=== PATIENT | female | born 1960 | race Caucasian/White ===

== ENCOUNTER 2017-10-25 05:23 | Observation (INO) ==
[2017-10-25] MEDS ORDERED: IOPAMIDOL 100 ML BOTTLE IV ONE (05:24)
[2017-10-25] MEDS ORDERED: ONDANSETRON 4 MG/2 ML VIAL IV ONE (05:29)
[2017-10-25] MEDS ORDERED: 0.9 % SODIUM CHLORIDE 1,000 ML IV ONE (05:29)
[2017-10-25] MEDS ORDERED: PROMETHAZINE 25 MG/ML VIAL IV ONE ×2 (06:09→09:32)
[2017-10-25 06:21] LABS: Basophils # (Auto) 0 K/mcL (0.0-0.3); Basophils % (Auto) 0.2 % (0.0-2.0); Eosinophils # (Auto) 0.2 K/mcL (0.0-0.7); Granulocytes % (Auto) 78.1 % (38.0-78.0); Lymphocytes # (Auto) 2.3 K/mcL (1.5-4.8); Lymphocytes % (Auto) 15.7 % (15.5-49.0); Mean Cell Volume 91.6 fL (80.0-100.0); Mean Corpuscular HGB Conc 33.8 g/dL (31.0-36.0); Monocytes # (Auto) 0.7 K/mcL (0.1-0.9); Platelet Count 307 K/mcL (140-440); RBC 4.66 M/mcL (4.00-5.20)
[2017-10-25 06:38] LABS: ALT/SGPT 13 U/l (0-40); Albumin 4.7 gm/dL (3.2-5.2); Albumin/Globulin Ratio 1.6 (1.0-2.3); Alkaline Phosphatase 79 U/L (39-117); Blood Urea Nitrogen 13 mg/dl (6-20)
[2017-10-25 06:44] LABS: Appearance,Urine HAZY; Bacteria,Urine FEW /hpf (0); Bilirubin,Urine NEG (NEG); Color,Urine YELLOW; Glucose,Urine (UA) NEGATIVE (NEG); Leukocyte Esterase,Urine 25 /uL (NEG); Mucus,Urine FEW /hpf (0); Protein,Urine NEG (NEG); Specific Gravity,Urine 1.034 (1.000-1.035); Urine Blood NEG mg/dL (<0.03); Urine RBC 1 /hpf (0-1); Urine Squamous Epithelial Cell 23 /hpf (0-4); Urine Transitional Epi Cells < 1 /hpf (0-2); Urine WBC 4 /hpf (0-4); Urobilinogen,Urine NEG (NEG)
[2017-10-25] MEDS ORDERED: LACTATED RINGERS 1,000 ML IV ONE (06:54)
--- NOTE | 2017-10-25 06:56 | Emergency Department Note ---
General Adult HPI - General Chief complaint: Abdominal Pain Stated complaint: Abdominal cramping Time Seen by Provider: 10/25/17 06:48 Mode of arrival: ambulatory - History of Present Illness HPI Narrative: This patient has been ill for a week with nausea vomiting mucousy diarrhea and nominal pain. Has not been able to keep anything down. She does not have her gallbladder or appendix. She is having a lot of right sided discomfort. Also feels it in her back. - Related Data Previous Rx's Medication Instructions Recorded propranolol ER 80 mg capsule,24 80 mg PO QDAY 30 Days #30 cap 01/28/15 hr,extended release zolpidem 5 mg tablet See Dose Instructions PO HS PRN 06/28/15 #10 tab Albuterol Sulfate [Ventolin] 2 puff INH Q4-6HP PRN #1 inhaler 03/31/17 Allergies Allergy/AdvReac Type Severity Reaction Status Date / Time bupropion [Bupropion] Allergy Unknown Verified 04/23/16 11:08 ketorolac [Ketorolac] Allergy Unknown Verified 04/23/16 11:08 metoclopramide Allergy Unknown Verified 04/23/16 11:08 [Metoclopramide] NSAIDS (Non-Steroidal Allergy Unknown Verified 04/23/16 11:08 Anti-Inflamma Paregoric Allergy Unknown Verified 04/23/16 11:08 prochlorperazine Allergy Unknown Verified 04/23/16 11:08 [Prochlorperazine] Pyrazoles Allergy Unknown Verified 04/23/16 11:08 Salicylates Allergy Unknown Verified 04/23/16 11:08 sumatriptan [Sumatriptan] Allergy Unknown Verified 04/23/16 11:08 [id number] Antimigraine Allergy Unknown Verified 04/23/16 11:08 Agents INGREDIENT: PHENYLET - Allergy Unknown Uncoded 09/06/14 13:49 PHENYLETHYLAMINES(DO NOT USE RETIRED Review of Systems All systems ED: reviewed and negative except as stated. Past Medical History - Past Medical History PMF Narrative: Medical History Upper respiratory infection (Acute) Gastroenteritis (Acute) Dental abscess (Acute) Chest pain (Acute) Cellulitis (Acute) Medical history: Reports: GERD, migraine Surgical history ED: Reports: appendectomy, cholecystectomy, hysterectomy, tonsillectomy - Social History smoking status: Current some day smoker Alcohol use: Reports: None Physical Exam Limitations: no limitations General appearance: alert Head: atraumatic Eye: Present: normal appearance ENT: normal exam Neck: Present: normal inspection Chest: Present: normal inspection Respiratory: Present: normal lung sounds bilaterally Cardiovascular: Present: regular rate, normal rhythm, normal heart sounds Abdominal: Present: soft, tenderness. Absent: distention, guarding, rebound Abdominal tenderness: Present: diffuse, mild Neurological: Present: alert Psychiatric: Present: normal affect Skin: Present: warm, dry, intact Course Vital Signs Temperature 97.3 F 10/25/17 05:23 Pulse Rate 93 H 10/25/17 05:23 Respiratory Rate 16 10/25/17 05:23 Blood Pressure 145/100 10/25/17 05:23 Pulse Oximetry (%) 100 10/25/17 05:23 Temperature 97.3 F 10/25/17 05:23 Pulse Rate 66 10/25/17 08:30 Respiratory Rate 16 10/25/17 05:23 Blood Pressure 124/68 10/25/17 08:30 Pulse Oximetry (%) 97 10/25/17 08:30 Medical Decision Making - MDM Narrative Medical decision making narrative: We are still awaiting the reading of the CT scan. Final disposition per Dr. Esparza. - Lab Data Lab results reviewed: Yes I reviewed the patient's lab results. Result diagrams: 10/25/17 05:43 10/25/17 05:43 Lab Results 10/25/17 10/25/17 10/25/17 Range/Units 05:43 05:43 06:23 WBC 14.7 H (4.5-11.0) K/mcL RBC 4.66 (4.00-5.20) M/mcL Hgb 14.4 (12.0-15.0) g/dL Hct 42.7 (36.0-48.0) % MCV 91.6 (80.0-100.0) fL MCH 31.0 (26.0-34.0) pg MCHC 33.8 (31.0-36.0) g/dL RDW 13.0 (11.5-14.5) % Plt Count 307 (140-440) K/mcL MPV 7.7 (7.4-10.4) fL Gran % 78.1 H (38.0-78.0) % Lymph % (Auto) 15.7 (15.5-49.0) % [place] % (Auto) 5.0 (1.0-12.0) % Eos % (Auto) 1.0 (0.0-7.0) % Baso % (Auto) 0.2 (0.0-2.0) % Gran # 11.5 H (1.8-8.0) K/mcL Lymph # (Auto) 2.3 (1.5-4.8) K/mcL [place] # (Auto) 0.7 (0.1-0.9) K/mcL Eos # (Auto) 0.2 (0.0-0.7) K/mcL Baso # (Auto) 0 (0.0-0.3) K/mcL Sodium 133 (133-145) mmol/L Potassium 3.8 (3.3-5.1) mmol/L Chloride 96 (96-108) mmol/L Carbon Dioxide 21 L (22-30) mmol/L Anion Gap 16.0 (8-16) BUN 13 (6-20) mg/dl Creatinine 0.7 (0.6-1.1) mg/dl GFR Calculation 98 Glucose 114 H (70-105) mg/dL Calcium 9.9 (8.6-10.4) mg/dl Total Bilirubin 0.5 (0.0-1.0) mg/dL AST 16 (0-37) U/l ALT 13 (0-40) U/l Alkaline Phosphatase 79 (39-117) U/L Total Protein 7.6 (5.9-8.4) gm/dL Albumin 4.7 (3.2-5.2) gm/dL Globulin 2.9 (2.2-3.7) gm/dL Albumin/Globulin Ratio 1.6 (1.0-2.3) Urine Color Yellow Urine Appearance Hazy Urine pH 5.0 (5.0-9.0) Ur Specific [place] 1.034 (1.000-1.035) Urine Protein Neg (NEG) mg/dL Urine Glucose (UA) Negative (NEG) mg/dL Urine Ketones Neg (NEG) mg/dL Urine Occult Blood Neg (<0.03) mg/dL Urine Nitrate Neg (NEG) Urine Bilirubin Neg (NEG) mg/dL Urine Urobilinogen Neg (NEG) mg/dL Ur Leukocyte Esterase 25 A (NEG) /uL Urine RBC 1 (0-1) /hpf Urine WBC 4 (0-4) /hpf Ur Squamous Epith Cells 23 H (0-4) /hpf Ur Transition Epith Cell < 1 (0-2) /hpf Urine Bacteria Few A (0) /hpf Urine Mucus Few (0) /hpf Ur Culture Indicated? No Disposition Pt seen by PNEUMATIC TUBE REPAIRER/PA only: No Disposition: Still a Patient Referrals: Nicol Casillas MD [Primary Care Provider] -
--- NOTE | 2017-10-25 08:00 | XRay Report ---
CLINICAL INFORMATION: Abdominal pain COMPARISON: 11/10/2007 plain film. FINDINGS: The stool gas pattern is unremarkable. There is no free air, soft tissue mass, organomegaly or pathologic calcification. IMPRESSION: Normal abdomen Interpreted and Authenticated by: Ezequiel Hurley 10/25/17
--- NOTE | 2017-10-25 09:02 | Cat Scan Report ---
CLINICAL INFORMATION: Abdominal pain and mucous diarrhea COMPARISON: Abdomen and pelvic CT: 11/10/2007 TECHNIQUE: Following enteric contrast, 80 cc of Isovue-300 were injected intravenously, and 60 seconds later, 0.625 mm helical slices were obtained from the mid heart through the subtrochanteric regions. Following reconstruction, 2.5 mm sagittal, coronal and axial reformatted images were processed and reviewed at bone, lung and soft tissue windows. Five minutes later, 0.625 mm helical slices were obtained from the mid heart through the kidneys and viewed at soft tissue windows.The exam was performed using radiation dose optimization techniques including, but not limited to, automated exposure control, adjustment of the mA and/or kV according to patient size and use of iterative reconstruction technique. FINDINGS: Lung bases show no abnormality - no effusions. The visualized heart is unremarkable. Images through the abdomen show a 11 mm benign hemangioma in the posterior segment right hepatic lobe which demonstrates long-term stability. Mild fatty change present in the liver. The gallbladder is surgically absent. The common hepatic and common bile ducts are moderately dilated (13 mm diameter) with abrupt tapering in the ampullary region ostensibly due to a 21 mm periampullary diverticula. There is a small amount of soft tissue or debris within the diverticulum. This was also noted on previous study There is also mild, stable dilatation of the pancreatic duct - 4 mm. A 8 mm low-attenuation lesion has developed in the uncinate process. The remaining pancreatic parenchyma is normal. No evidence of inflammation. Both kidneys, adrenal glands, spleen and aorta, including aortic branches, are normal in size configuration and attenuation without focal lesion. There is no free air, free fluid or adenopathy Images through the pelvis show the urinary bladder is normal. Hysterectomy/oophorectomy changes are noted. There is mild wall thickening of the rectosigmoid colon with circular muscle hypertrophy suggestive of early diverticulitis - the remaining colon is unremarkable. The appendix is surgically absent. Small bowel and stomach are unremarkable. Bone windows show no osseous abnormality. IMPRESSION: 1. Moderate stable chronic dilatation of common hepatic and common bile ducts (13 mm CBD diameter). 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 The pancreatic duct is also mildly dilated also likely related to partial obstruction by the diverticulum. This is unchanged. There is a: however, a new 8 mm low-attenuation lesion in the uncinate process which either a cystic lesion or marked dilatation of the uncinate process sidebranch of the pancreatic duct. This could indicate IPMT. Suggest: Abdominal MRI/MRCP and correlation with obstructive LFT pattern 2. Mild wall thickening of the rectosigmoid colon which could indicate mild sigmoid diverticulitis. Interpreted and Authenticated by: Ezequiel Hurley 10/25/17
--- NOTE | 2017-10-25 10:14 | Emergency Department Note ---
Abdominal Pain HPI - General Chief Complaint: Abdominal Pain Stated Complaint: Abdominal cramping Time Seen by Provider: 10/25/17 06:48 Mode of arrival: ambulatory Limitations: no limitations - History of Present Illness HPI Narrative: After change of shift (see Dr. Goyal's Hx and PE who is going off shift) -- chart review includes the following: This pleasant 57-year-old female began with some discomfort in the right lower back that radiated to the front about 3 weeks ago and then came on the nausea and vomiting and diarrhea about 6 days ago. She has been unable to work. She has had some dry heaves in the past 24 hours. She is trying to keep down and has been somewhat successful with some protein shakes and water. Her cholecystectomy was in the and she does report a history of knowing that she had a common bile duct dilatation. 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 First time this was done was in [place] but she had a reaction to the stent and it had to be removed. After the reaction settle down another stent was placed which was in place for about 6 months and then removed and she has been fine since that time. Dr. João Nieves took care of her since then. She denies a history of diverticulitis. She does not recall a history of pancreatitis. Her chills and sweats have been going on for approximately 1 week. She has not had pain on the left side only on the right side. No recent antibiotics. She also has had some accompanying bloating, gurgling and has had some difficulty passing gas. Has felt dehydrated. - Related Data Previous Rx's Medication Instructions Recorded propranolol ER 80 mg capsule,24 80 mg PO QDAY 30 Days #30 cap 01/28/15 hr,extended release zolpidem 5 mg tablet See Dose Instructions PO HS PRN 06/28/15 #10 tab Albuterol Sulfate [Ventolin] 2 puff INH Q4-6HP PRN #1 inhaler 03/31/17 Allergies Allergy/AdvReac Type Severity Reaction Status Date / Time clindamycin Allergy Severe Anaphylaxis Verified 10/25/17 11:15 bupropion [Bupropion] Allergy Unknown Verified 04/23/16 11:08 ketorolac [Ketorolac] Allergy Unknown Verified 04/23/16 11:08 metoclopramide Allergy Unknown Verified 04/23/16 11:08 [Metoclopramide] NSAIDS (Non-Steroidal Allergy Unknown Verified 04/23/16 11:08 Anti-Inflamma Paregoric Allergy Unknown Verified 04/23/16 11:08 prochlorperazine Allergy Unknown Verified 04/23/16 11:08 [Prochlorperazine] Pyrazoles Allergy Unknown Verified 04/23/16 11:08 Salicylates Allergy Unknown Verified 04/23/16 11:08 sumatriptan [Sumatriptan] Allergy Unknown Verified 04/23/16 11:08 [id number] Antimigraine Allergy Unknown Verified 04/23/16 11:08 Agents INGREDIENT: PHENYLET - Allergy Unknown Uncoded 09/06/14 13:49 PHENYLETHYLAMINES(DO NOT USE RETIRED Abdominal Pain PMH - Past Medical History Medical history: Reports: GERD, migraine Surgical history ED: Reports: appendectomy, hysterectomy, other (oophorectomy.) - Social History Smoking status: Current some day smoker Alcohol use: Reports: None Physical Exam Limitations: no limitations General appearance: alert, in no apparent distress Head: atraumatic, normocephalic Eye: Present: EOMI Abdominal: Present: soft, distention (Mildly), tenderness (Moderate to severe on the right side.). Absent: guarding, rebound, rigidity, organomegaly, mass Neurological: Present: alert, oriented X3 Psychiatric: Present: normal affect, normal mood Skin: Present: warm, dry Course Vital Signs Temperature 97.3 F 10/25/17 05:23 Pulse Rate 93 H 10/25/17 05:23 Respiratory Rate 16 10/25/17 05:23 Blood Pressure 145/100 10/25/17 05:23 Pulse Oximetry (%) 100 10/25/17 05:23 Temperature 97.3 F 10/25/17 05:23 Pulse Rate 75 10/25/17 14:01 Respiratory Rate 16 10/25/17 05:23 Blood Pressure 150/86 10/25/17 14:01 Pulse Oximetry (%) 98 10/25/17 14:01 Abdominal Pain - MDM Narrative Medical decision making narrative: White count here was 14.7. Liver function tests were normal. CT scan shows - some mild thickening in the left rectosigmoid area possible diverticulitis. On exam she is mildly tender to that area but this has not been her problem - her pain is right sided and she has had several doses of morphine but still remains quite uncomfortable. CT findings - a persistent dilatation of the common bile duct and pancreatic duct. There is a diverticulum near the ampulla with sludge or soft tissue inside of it. In the uncinate process is another small lesion describes as an intraductal papillary mucous tumor (IPMT). I discussed this with radiology with consideration for getting the MRI/MRCP this afternoon. 10:25 AM I spoke with on-call GI doctor Dr. Barragan who recommended patient be transferred to a specialty center because of the diverticulum and pancreatic lesion which would seem to be contributing to her symptoms even though there are not signs of blockage, i.e., no liver function tests or alkaline phosphatase elevation. He agrees that the left rectosigmoid diverticulitis does not need acute workup or intervention. He is not willing to consult because he believes that the lesions are out of his scope of practice and recommends patient be transferred to [place]. The recommendation to get an MRI/MRCP seems important to him as well. Alternative locations besides [place] could include [facility]. 10:50 AM I spoke with Dr. Mas, GI on-call at [place] who would be willing to see patient in consult. However, there is no available bed nor at [facility]. Possibility of waiting to be admitted later this afternoon or evening. But no guarantee. He does recommend the MRI/MRCP if it can be obtained. 11:20 AM I spoke with hospitalist here for consideration of admission, getting the MRI/ MRCP, pending transfer to [place]. Dr. Mccurdy recommends that she be kept in the emergency room since there is nothing additional that he can do in the hospital and he does not have GI backup for help. Conclusion was to keep her in the emergency room awaiting transfer to [place] when a bed is available. In the meantime, if possible to get the MRI/MRCP. - Lab Data Result diagrams: 10/25/17 05:43 10/25/17 05:43 Lab Results 10/25/17 10/25/17 10/25/17 Range/Units 05:43 05:43 05:43 WBC 14.7 H (4.5-11.0) K/mcL RBC 4.66 (4.00-5.20) M/mcL Hgb 14.4 (12.0-15.0) g/dL Hct 42.7 (36.0-48.0) % MCV 91.6 (80.0-100.0) fL MCH 31.0 (26.0-34.0) pg MCHC 33.8 (31.0-36.0) g/dL RDW 13.0 (11.5-14.5) % Plt Count 307 (140-440) K/mcL MPV 7.7 (7.4-10.4) fL Gran % 78.1 H (38.0-78.0) % Lymph % (Auto) 15.7 (15.5-49.0) % [place] % (Auto) 5.0 (1.0-12.0) % Eos % (Auto) 1.0 (0.0-7.0) % Baso % (Auto) 0.2 (0.0-2.0) % Gran # 11.5 H (1.8-8.0) K/mcL Lymph # (Auto) 2.3 (1.5-4.8) K/mcL [place] # (Auto) 0.7 (0.1-0.9) K/mcL Eos # (Auto) 0.2 (0.0-0.7) K/mcL Baso # (Auto) 0 (0.0-0.3) K/mcL Sodium 133 (133-145) mmol/L Potassium 3.8 (3.3-5.1) mmol/L Chloride 96 (96-108) mmol/L Carbon Dioxide 21 L (22-30) mmol/L Anion Gap 16.0 (8-16) BUN 13 (6-20) mg/dl Creatinine 0.7 (0.6-1.1) mg/dl GFR Calculation 98 Glucose 114 H (70-105) mg/dL Calcium 9.9 (8.6-10.4) mg/dl Total Bilirubin 0.5 (0.0-1.0) mg/dL AST 16 (0-37) U/l ALT 13 (0-40) U/l Alkaline Phosphatase 79 (39-117) U/L C-Reactive Protein < 0.3 (0.0-0.8) mg/dl Total Protein 7.6 (5.9-8.4) gm/dL Albumin 4.7 (3.2-5.2) gm/dL Globulin 2.9 (2.2-3.7) gm/dL Albumin/Globulin Ratio 1.6 (1.0-2.3) Lipase 86 H (7-60) U/L Urine Color Urine Appearance Urine pH (5.0-9.0) Ur Specific [place] (1.000-1.035) Urine Protein (NEG) mg/dL Urine Glucose (UA) (NEG) mg/dL Urine Ketones (NEG) mg/dL Urine Occult Blood (<0.03) mg/dL Urine Nitrate (NEG) Urine Bilirubin (NEG) mg/dL Urine Urobilinogen (NEG) mg/dL Ur Leukocyte Esterase (NEG) /uL Urine RBC (0-1) /hpf Urine WBC (0-4) /hpf Ur Squamous Epith Cells (0-4) /hpf Ur Transition Epith Cell (0-2) /hpf Urine Bacteria (0) /hpf Urine Mucus (0) /hpf Ur Culture Indicated? 10/25/17 Range/Units 06:23 WBC (4.5-11.0) K/mcL RBC (4.00-5.20) M/mcL Hgb (12.0-15.0) g/dL Hct (36.0-48.0) % MCV (80.0-100.0) fL MCH (26.0-34.0) pg MCHC (31.0-36.0) g/dL RDW (11.5-14.5) % Plt Count (140-440) K/mcL MPV (7.4-10.4) fL Gran % (38.0-78.0) % Lymph % (Auto) (15.5-49.0) % [place] % (Auto) (1.0-12.0) % Eos % (Auto) (0.0-7.0) % Baso % (Auto) (0.0-2.0) % Gran # (1.8-8.0) K/mcL Lymph # (Auto) (1.5-4.8) K/mcL [place] # (Auto) (0.1-0.9) K/mcL Eos # (Auto) (0.0-0.7) K/mcL Baso # (Auto) (0.0-0.3) K/mcL Sodium (133-145) mmol/L Potassium (3.3-5.1) mmol/L Chloride (96-108) mmol/L Carbon Dioxide (22-30) mmol/L Anion Gap (8-16) BUN (6-20) mg/dl Creatinine (0.6-1.1) mg/dl GFR Calculation Glucose (70-105) mg/dL Calcium (8.6-10.4) mg/dl Total Bilirubin (0.0-1.0) mg/dL AST (0-37) U/l ALT (0-40) U/l Alkaline Phosphatase (39-117) U/L C-Reactive Protein (0.0-0.8) mg/dl Total Protein (5.9-8.4) gm/dL Albumin (3.2-5.2) gm/dL Globulin (2.2-3.7) gm/dL Albumin/Globulin Ratio (1.0-2.3) Lipase (7-60) U/L Urine Color Yellow Urine Appearance Hazy Urine pH 5.0 (5.0-9.0) Ur Specific [place] 1.034 (1.000-1.035) Urine Protein Neg (NEG) mg/dL Urine Glucose (UA) Negative (NEG) mg/dL Urine Ketones Neg (NEG) mg/dL Urine Occult Blood Neg (<0.03) mg/dL Urine Nitrate Neg (NEG) Urine Bilirubin Neg (NEG) mg/dL Urine Urobilinogen Neg (NEG) mg/dL Ur Leukocyte Esterase 25 A (NEG) /uL Urine RBC 1 (0-1) /hpf Urine WBC 4 (0-4) /hpf Ur Squamous Epith Cells 23 H (0-4) /hpf Ur Transition Epith Cell < 1 (0-2) /hpf Urine Bacteria Few A (0) /hpf Urine Mucus Few (0) /hpf Ur Culture Indicated? 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, Pancreatic lesion, IPMT (intraductal papillary mucinous tumor), Dehydration, Diverticulitis of rectosigmoid, Dilated cbd, acquired, History of chronic PID Abdominal pain Qualifiers: Abdominal location: right upper quadrant Qualified Code(s): R10.11 - Right upper quadrant pain Nausea & vomiting Qualifiers: Vomiting type: unspecified Vomiting Intractability: intractable Qualified Code( s): R11.2 - Nausea with vomiting, unspecified Diarrhea Qualifiers: Diarrhea type: unspecified type Qualified Code(s): R19.7 - Diarrhea, unspecified Elevated WBC count Qualifiers: Leukocytosis type: leukemoid reaction Qualified Code(s): D72.823 - Leukemoid reaction Disposition: [facility] Condition: Serious Referrals: Nicol Casillas MD [Primary Care Provider] -
[2017-10-25 10:55] LABS: C-Reactive Protein < 0.3 mg/dl (0.0-0.8); Lipase 86 U/L (7-60)
[2017-10-25] MEDS ORDERED: HYDROmorphone 2 MG/ML VIAL IM ONE (11:49)
[2017-10-25] MEDS ORDERED: LORazepam 2 MG/ML VIAL IV ONE ×2 (13:43→14:42)
[2017-10-25] MEDS ORDERED: 0.9 % SODIUM CHLORIDE 1,000 ML IV SCH (14:00)
[2017-10-25] MEDS: HYDROmorphone 2 MG/ML VIAL IV PRN ×3 (14:21→20:53)
--- NOTE | 2017-10-25 16:01 | Magnetic Resonance Report ---
CLINICAL INFORMATION: Remote history of chronic pancreatitis. Abdominal pain. Dilated cystic lesion in the uncinate process on CT which may represent IPMN also. COMPARISON: Abdominal CT 10/25/2017 and 11/10/2007 TECHNIQUE: MRCP was performed using 3D FRFSE respiratory triggered and single-shot FSE thick slab technique. Axial T2 SSFSE and coronal SSFSE images were obtained through the upper abdomen as well. In addition, axial SSFSE T2 diffusion ADC and coronal and 7E images are obtained through the upper abdomen. FINDINGS: The lung bases are clear. There are no effusions. The visualized heart is normal. There is a 3 cm periampullary diverticulum extrinsically compressing the intrapancreatic common bile duct near the papilla which results in moderate dilatation of the intrahepatic common hepatic and common bile ducts - common bile duct diameter is 15 mm. The pancreatic duct is also slightly dilated - 3 mm. There is a 12 mm cystic lesion in the uncinate process which communicates Wirsung's pancreatic duct most compatible with IPMN. Remaining pancreatic parenchyma is normal. 11 mm benign hemangioma in the posterior segment of the right hepatic lobe and 19 mm simple cyst in the left hepatic lobe demonstrate long-term stability no significant focal hepatic lesions. Gallbladder is surgically absent. Both kidneys, adrenal glands, spleen and aorta are normal. There is now free air, free fluid and no adenopathy. IMPRESSION: 1. 12 mm cystic lesion in the uncinate process of pancreas which communicates Wirsung's pancreatic duct . It is suspicious for IPMN. Suggest GI referral for endoscopic ultrasound for tissue sampling. This lesion was not seen on the remote [address] CT. 2. 3 cm periampullary diverticulum which extrinsically compresses the intrapancreatic common bile duct, near the papilla, and results in moderate dilatation of the upstream duct - 15 mm. Pancreatic duct is also slightly dilated - 3 mm. Papillotomy and/or stenting might be concomitantly performed time of evaluation of the uncinate process lesion. 3. Benign hemangioma in the right hepatic lobe and anterior simple cyst in the left hepatic lobe - both demonstrate long-term stability. Interpreted and Authenticated by: Ezequiel Hurley 10/25/17
[2017-10-25] MEDS ORDERED: PANTOPRAZOLE 40 MG VIAL IV ONE (16:47)
[2017-10-25] MEDS ORDERED: traZODone HCL 50 MG TABLET PO PRN (17:36)
[2017-10-25] MEDS ORDERED: MAGNESIUM SULFATE 2 GM/50 ML BAG IV PRN (17:36)
[2017-10-25] MEDS ORDERED: ALBUTEROL SULFATE 1 PUFF INHALER INH PRN (17:36)
[2017-10-25] MEDS ORDERED: BISACODYL 10 MG SUPP.RECT PR PRN (17:36)
[2017-10-25] MEDS ORDERED: POTASSIUM CHLORIDE 20 MEQ PACKET PO PRN (17:36)
[2017-10-25] MEDS ORDERED: ACETAMINOPHEN 1,000 MG/100 ML BOTTLE IV PRN (17:36)
--- NOTE | 2017-10-25 17:40 | Internal Med History&Physical ---
Medical - H&P: HPI Patient information: Note initiated : 10/25/17 at 5:37 pm Service Date, if different from initiated Date: [] Patient: Magda Whitehead a 57 y/o F admitted on for Abdominal cramping. Chief Complaint: [] Chief complaint: nausea History of present illness: Ms. Whitehead is a 57 year old F fairly healthy lady who comes in with one-week onset of progressive nausea and right-sided upper quadrant abdominal pain and inability to function due to profound weakness. Patient feels the pain is exactly similar to prior episodes of pain in 2003. Patient gives a history of pancreatic stents placed for pancreatic duct stenosis in 2003 at [place] and subsequently removed and has had a symptom-free interval for over 10 years. Spiriva 6 out of 10-8 out of 10 right subcostal/epigastric without radiation. Associated with profound nausea and vomiting and inability to take anything orally over the last week. Patient denied associated shaking chills fever or weight loss yellow discoloration of skin or urine however she endorses to frequent watery diarrhea along with cramps associated mucus. She denies fever or chest palpitation skin rash or changes in medications. 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 GI was consulted and recommended tertiary center transfer. After discussion with tertiary Center and due to lack of available to bed patient is being admitted for upper endoscopy which will be performed with Dr. Ezequiel Barragan GI. Hospitalist service was consulted to facilitate above Review of systems 10 point review systems was performed and is negative except 1 Medical - H&P: PMH Medical history: Reactive airway disease History of pancreatic duct stenosis status post stenting in 2003 Surgical history: Pancreatic stenting 2003 Pertinent family history: Nonsignificant Social history: No history of smoking or alcoholism. and lives with parents Medical - H&P: Meds Home Medications Medication Instructions Recorded Confirmed Type propranolol ER 80 mg capsule,24 80 mg PO QDAY 30 Days #30 cap 01/28/15 10/25/17 Rx hr,extended release zolpidem 5 mg tablet See Dose Instructions PO HS PRN 06/28/15 10/25/17 Rx #10 tab Albuterol Sulfate [Ventolin] 2 puff INH Q4-6HP PRN #1 inhaler 03/31/17 10/25/17 Rx Melatonin/Pyridoxine [Melatonin 5 1 each PO HS 10/25/17 10/25/17 History mg Tablet] Allergies Allergy/AdvReac Type Severity Reaction Status Date / Time clindamycin Allergy Severe Anaphylaxis Verified 10/25/17 11:15 bupropion [Bupropion] Allergy Unknown Verified 04/23/16 11:08 ketorolac [Ketorolac] Allergy Unknown Verified 04/23/16 11:08 metoclopramide Allergy Unknown Verified 04/23/16 11:08 [Metoclopramide] Paregoric Allergy Unknown Verified 04/23/16 11:08 prochlorperazine Allergy Unknown Verified 04/23/16 11:08 [Prochlorperazine] Pyrazoles Allergy Unknown Verified 04/23/16 11:08 Salicylates Allergy Unknown Verified 04/23/16 11:08 sumatriptan [Sumatriptan] Allergy Unknown Verified 04/23/16 11:08 [id number] Antimigraine Allergy Unknown Verified 04/23/16 11:08 Agents INGREDIENT: PHENYLET - Allergy Unknown Uncoded 09/06/14 13:49 PHENYLETHYLAMINES(DO NOT USE RETIRED Medical - H&P: Exam - Constitutional Vitals: Temp Pulse Resp BP Pulse Ox 97.3 F 80 16 143/108 99 10/25/17 05:23 10/25/17 16:31 10/25/17 05:23 10/25/17 17:03 10/25/17 16:31 General appearance: no acute distress Exam: Alert oriented Eye movements symmetrical Oral cavity dry no eardischarge Head normocephalic Neck no lymphadenopathy S1-S2 regular rhythm Chest clear to auscultation anterior lateral chest Abdomen minimally tender right upper quadrant No rebound guarding normal bowel sounds Kelin V no cyanosis clubbing No joint swelling or erythema normal range of motion of the joints Skin no suspicious lesion Psych alert cooperative no anxiety or hallucinations Neuro nonfocal limited neuro exam Medical - H&P: Reslt - Labs CBC & Chem 7: 10/27/17 04:10 10/27/17 04:10 Labs: Short CBC 10/25/17 Range/Units 05:43 WBC 14.7 H (4.5-11.0) K/mcL Hgb 14.4 (12.0-15.0) g/dL Hct 42.7 (36.0-48.0) % Plt Count 307 (140-440) K/mcL BMP 10/25/17 05:43 Sodium 133 Potassium 3.8 Chloride 96 Carbon Dioxide 21 L BUN 13 Creatinine 0.7 Glucose 114 H Calcium 9.9 Liver Function 10/25/17 Range/Units 05:43 Total Bilirubin 0.5 (0.0-1.0) mg/dL AST 16 (0-37) U/l ALT 13 (0-40) U/l Alkaline Phosphatase 79 (39-117) U/L Albumin 4.7 (3.2-5.2) gm/dL Urine 10/25/17 Range/Units 06:23 Urine Color Yellow Urine Appearance Hazy Urine pH 5.0 (5.0-9.0) Ur Specific [place] 1.034 (1.000-1.035) Urine Protein Neg (NEG) mg/dL Urine Glucose (UA) Negative (NEG) mg/dL Medical - H&P: A/P (1) Abdominal pain Current visit: Yes Status: Acute * Abdominal pain likely secondary to pancreatic diverticulum-continue pain management. Keep nothing by mouth. Upper endoscopy. GI consult * Diverticulitis with mild leukocytosis. Await upper endoscopy. May require empiric antibiotics if worsening leukocytosis Plan * Observation admit * Upper endoscopy/GI consult
[2017-10-25] MEDS: 0.9 % SODIUM CHLORIDE 1,000 ML IV SCH (17:48)
[2017-10-25] MEDS ORDERED: KETAMINE 10 MG/ML ML IV PRN (20:13)
[2017-10-25] MEDS ORDERED: PROPOFOL 200 MG/20 ML VIAL IV SCH (20:15)
[2017-10-25] MEDS ORDERED: MIDAZOLAM 2 MG/2 ML VIAL IV SCH (20:15)
[2017-10-25] MEDS: PIPERACILLIN SODIUM/TAZOBACTAM 3.375 GM in DEXTROSE 5% IN WATER 50 ML IV SCH (21:15)
[2017-10-25] MEDS: HEPARIN 5,000 UNIT/ML VIAL SQ SCH (21:15)
[2017-10-25] MEDS: SENNOSIDES/DOCUSATE SODIUM 1 TAB TABLET PO SCH (21:19)
[2017-10-25] MEDS: 0.9 % SODIUM CHLORIDE 10 ML SYRINGE IV SCH (21:53)
[2017-10-26] MEDS: 0.9 % SODIUM CHLORIDE 1,000 ML IV SCH ×3 (00:05→12:31)
[2017-10-26] MEDS: PIPERACILLIN SODIUM/TAZOBACTAM 3.375 GM in DEXTROSE 5% IN WATER 50 ML IV SCH ×5 (01:18→23:50)
[2017-10-26] MEDS: HYDROmorphone 2 MG/ML VIAL IV PRN ×2 (02:02→06:01)
[2017-10-26] MEDS: ONDANSETRON 4 MG/2 ML VIAL IV PRN ×3 (02:07→12:43)
[2017-10-26] MEDS: 0.9 % SODIUM CHLORIDE 10 ML SYRINGE IV SCH ×3 (05:15→21:51)
[2017-10-26 07:31] LABS: Mean Cell Volume 92.1 fL (80.0-100.0); Mean Corpuscular HGB Conc 34.5 g/dL (31.0-36.0); Mean Corpuscular Hemoglobin 31.7 pg (26.0-34.0); Platelet Count 232 K/mcL (140-440); RBC 3.79 M/mcL (4.00-5.20); Red Cell Distribution Width 12.7 % (11.5-14.5)
--- NOTE | 2017-10-26 07:53 | Operative Note ---
DATE OF OPERATION: 10/25/2017 [employer] OFFICER: Ezequiel Johnson MD ANESTHETIC USED: Versed 2 mg IV, propofol 180 mg IV. PREOPERATIVE DIAGNOSIS: A 57-year-old white female who presented to the emergency room earlier today with a 6-day complaint of nausea, vomiting, right-sided and right flank pain along with mucus-like diarrhea. In retrospect, she says that she has experienced similar symptoms, lasting 3 to 5 days at a time during the last 4 months. She had thought that the symptoms represented an infection of sorts, but she really did not think much more of it than that. Now, however, in retrospect she remembers that she had a problem with some sort of pancreatic or biliary problems for which she went to [place], either at [facility] or [facility] [place] back in 2003. She remembers that she had a stent or stents placed at that time but does not remember whether it was in the pancreatic duct, the biliary duct, or both. She says that she remembers that her body " so thereafter Dr. Root at that time put another stent or stents, which were left in place for about 6 months. She recalls nothing more than that and had not had any problems until about 4 months ago when she started having these intermittent pains with nausea and vomiting. She is not sure if it is the same process or not. At the emergency room today a CAT scan was done showing dilation of the common bile duct and pancreatic duct along with a duodenal diverticulum. Liver chemistries were normal and pancreatic enzymes were normal. She then underwent an MRCP with similar findings, although the duodenal diverticulum now appears to be about 3 cm in diameter. Efforts were made to transfer the patient to [place] or [facility] for endoscopic ultrasound, possible ERCP. However, apparently all these hospitals contacted are full, so the recommendation was to at least proceed to an EGD here, looking for other causes of right upper quadrant pain with nausea and vomiting. POSTOPERATIVE DIAGNOSIS: Moderately large 2+ cm periampullary diverticulum with evidence of a sphincterotomy having been performed. No evident acute pathology at endoscopy tonight. CONSENT: Prior to the procedure the patient provided her own informed consent. The patient was evaluated and considered medically fit for endoscopy. DESCRIPTION OF PROCEDURE: With the patient in the left lateral decubitus position, a gastroscope was advanced via the mouth to the esophagus under direct vision. The esophagus appeared normal throughout its length without ulcer, stricture, mass, or hiatal hernia. Distally there is a slight Schatzki's ring. The stomach appears endoscopically normal including retroflexed view. The duodenum appeared normal to the third and proximal fourth portion of the duodenum. I could not see the ampulla or any diverticulum with the forward viewing scope. Therefore, I removed the gastroscope and used a side-viewing duodenoscope to examine the second portion of the duodenum. With a side-viewing duodenoscope I did identify a large 2+ cm diverticulum. In fact, there is a large diverticulum just to the distal side of the ampulla and a smaller diverticular recess at the proximal side of the ampulla. The ampulla itself appears to have undergone prior sphincterotomy. There are no foreign bodies or pus or purulence or bleeding or any other acute pathology identified at endoscopy tonight. COMPLICATIONS: None immediate. RECOMMENDATIONS AND FOLLOWUP: While the patient is here at [facility] I will recommend supportive measures including analgesics, antiemetics, antinausea medication, IV fluids, etc. Eventually a referral to a center capable of doing endoscopic ultrasound would be my recommendation. I do not recommend ERCP as a diagnostic test trying to evaluate the cause of her abdominal pain. However, if endoscopic ultrasound were to identify pathology then that would be amenable to ERCP and then it could be undertaken. I should note that the CAT scan and MRI were also shown as being consistent with an IPMN, intraductal pancreatic mucinous neoplasm. This was at the uncinate process of the pancreas, but it is difficult to identify any acute pathology by the imaging. [email or web address] Job ID: [id number] Doc ID: [id number] Ezequiel Casillas MD
[2017-10-26 08:12] LABS: ALT/SGPT 12 U/l (0-40); Albumin 3.7 gm/dL (3.2-5.2); Albumin/Globulin Ratio 1.7 (1.0-2.3); Alkaline Phosphatase 59 U/L (39-117); Bilirubin,Direct < 0.2 mg/dL (0.0-0.3); Blood Urea Nitrogen 5 mg/dl (6-20); Gamma Glutamyl Transpeptidase 9 U/L (5-36); Uric Acid 2.8 mg/dL (2.5-8.0)
[2017-10-26] MEDS: PROPRANOLOL 80 MG CAP.XL.24H PO SCH (10:30)
[2017-10-26] MEDS: ACETAMINOPHEN 325 MG TABLET PO PRN (10:30)
[2017-10-26] MEDS: MULTIVIT,THER IRON,CA,FA & MIN 1 TABLET PO SCH (10:30)
[2017-10-26] MEDS: DIAZEPAM 5 MG TABLET PO PRN ×3 (10:30→18:53)
[2017-10-26] MEDS: HEPARIN 5,000 UNIT/ML VIAL SQ SCH ×2 (11:03→20:43)
[2017-10-26 11:35] LABS: Basophils % (Manual) 1 % (0-2); Eosinophils % (Manual) 2 % (0-7); Lymphocytes % 25 % (15-49); Monocytes % (Manual) 3 % (1-12); Platelet Estimate NORMAL (NORMAL); RBC Morphology NORMAL (NORMAL); Segmented Neutrophils % 69 % (38-78)
[2017-10-26] MEDS: SENNOSIDES/DOCUSATE SODIUM 1 TAB TABLET PO SCH (20:44)
[2017-10-26] MEDS: ZOLPIDEM 5 MG TABLET PO PRN (21:51)
[2017-10-27] MEDS: DIAZEPAM 5 MG TABLET PO PRN ×6 (00:51→22:00)
[2017-10-27] MEDS: ACETAMINOPHEN 325 MG TABLET PO PRN (00:51)
--- NOTE | 2017-10-27 01:43 | Internal Med Progress Note ---
Medical - PN: Subj Patient information: Note initiated : 10/27/17 at 1:42 am Service Date, if different from initiated Date: [] Patient: Magda Whitehead a 57 y/o F admitted on 10/25/17 for Abdominal Cramping. Chief Complaint: [] Interval history: Ms. Whitehead is a 57 year old F fairly healthy lady who comes in with one-week onset of progressive nausea and right-sided upper quadrant abdominal pain and inability to function due to profound weakness. Patient feels the pain is exactly similar to prior episodes of pain in 2003. Patient gives a history of pancreatic stents placed for pancreatic duct stenosis in 2003 at [place] and subsequently removed and has had a symptom-free interval for over 10 years. Spiriva 6 out of 10-8 out of 10 right subcostal/epigastric without radiation. Associated with profound nausea and vomiting and inability to take anything orally over the last week. Patient denied associated shaking chills fever or weight loss yellow discoloration of skin or urine however she endorses to frequent watery diarrhea along with cramps associated mucus. She denies fever or chest palpitation skin rash or changes in medications. 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 GI was consulted and recommended tertiary center transfer. After discussion with tertiary Center and due to lack of available to bed patient is being admitted for upper endoscopy which will be performed with Dr. Ezequiel Barragan GI. Hospitalist service was consulted to facilitate above 10/26-upper endoscopy unremarkable. GI recommends transfer to tertiary Center due to persistent pain for ERCP. MRCP reveals 12 mm cystic lesion in the uncinate process/3 cm periampullary Diverticulum along with 3 mm dilatation of pancreatic duct. GI recommends advancement to [facility] along with continued pain management and transfer once beds available at tertiary Center. Transfer coordination ongoing to [facility]. - Constitutional Vitals: Vital Signs Temp Pulse Resp BP Pulse Ox 98.4 F 67 20 110/69 97 10/26/17 23:47 10/26/17 23:47 10/26/17 23:47 10/26/17 23:47 10/26/17 23:47 Period Temp Pulse Resp BP Sys/Ramos Pulse Ox Last 24 Hr 97.8 F-98.4 F 60-67 20-24 103-138/67-79 92-97 Intake and Output 07/10/26/17 10/27/17 13:59 21:59 05:59 Intake Total 1460 / 1460 1210 / 1210 50 / 50 Output Total 1600 / 1600 1999 1150 / 1150 Balance -140 / -140 -790 / -790 -1100 / -1100 Weight 128 lb 14.4 oz Patient Weight 10/27/17 05:59 Weight 128 lb 14.4 oz Intake & Output: Intake & Output 10/26/17 10/26/17 10/27/17 13:59 21:59 05:59 Intake Total 1460 / 1460 1210 / 1210 50 / 50 Output Total 1600 / 1600 1999 1150 / 1150 Balance -140 / -140 -790 / -790 -1100 / -1100 Weight 128 lb 14.4 oz Intake: IV 1100 / 1100 50 / 50 50 / 50 Sodium Chloride 0.9% 1,000 ml @ 1000 / 1000 100 mls/hr IV .Q10H [facility] Rx#: [id number] Zosyn 3.375 gm In Dextrose 5% 100 / 100 50 / 50 50 / 50 in Water 50 ml @ 100 mls/hr IV Q6H [facility] Rx#:[id number] Oral 360 / 360 1160 / 1160 Output: Void Amount 1600 / 1600 1999 1150 / 1150 Other: Meal Breakfast Jello Percent of Meal Consumed 100% Feeding Ability Independent # Voids 900 General appearance: no acute distress Exam: Anxious nonlabored breathing Tender abdomen subcostal and epigastric area no Lymphedema Medical - PN: Obj Da - Labs CBC & Chem 7: 10/27/17 04:10 10/27/17 04:10 Labs: Abnormal Lab Results 10/26/17 10/26/17 10/25/17 06:20 06:20 06:23 WBC RBC 3.79 L Hct 34.9 L Gran % Gran # Carbon Dioxide BUN 5 L Creatinine 0.5 L Glucose Lipase Ur Leukocyte Esterase 25 A Ur Squamous Epith Cells 23 H Urine Bacteria Few A 10/25/17 10/25/17 10/25/17 05:43 05:43 05:43 WBC 14.7 H RBC Hct Gran % 78.1 H Gran # 11.5 H Carbon Dioxide 21 L BUN Creatinine Glucose 114 H Lipase 86 H Ur Leukocyte Esterase Ur Squamous Epith Cells Urine Bacteria Meds: Medications Acetaminophen (Tylenol) 650 mg PO Q4-6HP PRN PRN Reason: PAIN/FEVER > 101 Last Admin: 10/27/17 00:51 Dose: 650 mg Albuterol Sulfate (Ventolin) 2 puff INH Q4-6HP PRN PRN Reason: Wheezing Bisacodyl (Dulcolax) 10 mg NM Q2-3DAYS PRN PRN Reason: Constipation Diazepam (Valium) 5 mg PO Q4HP PRN PRN Reason: Muscle Spasm Last Admin: 10/27/17 00:51 Dose: 5 mg Heparin Sodium (Porcine) (Heparin) 5,000 unit SQ Q12 [facility] Last Admin: 10/26/17 20:43 Dose: 5,000 unit Magnesium Sulfate (Magnesium Sulfate) 2 gm in 50 mls @ 50 mls/hr IV UD PRN PRN Reason: MG = or < 1.7 Acetaminophen (Ofirmev) 1,000 mg in 100 mls @ 200 mls/hr IV Q6HP PRN PRN Reason: PAIN/FEVER > 101 Last Infusion: 10/26/17 05:03 Dose: Infused Piperacillin Sod/Tazobactam (Sod 3.375 gm/ Dextrose) 50 mls @ 100 mls/hr IV Q6H [facility] Last Infusion: 10/27/17 01:31 Dose: Infused Iron Carb/Multivit/[place]/Folic Acid (Multivitamin W/Minerals) 1 tab PO DAILY [facility] Last Admin: 10/26/17 10:30 Dose: 1 tab Morphine Sulfate (Morphine) 4 mg IV Q1HP PRN PRN Reason: PAIN LEVEL > 6 Last Admin: 10/26/17 23:50 Dose: 4 mg Ondansetron HCl (Zofran) 4 mg IV Q4-6HP PRN PRN Reason: Nausea And Vomiting Last Admin: 10/26/17 12:43 Dose: 4 mg Potassium Chloride (Klor-Con) 40 meq PO DAILYP PRN PRN Reason: K+ < 3.5 Propranolol HCl (Inderal La) 80 mg PO QDAY [facility] Last Admin: 10/26/17 10:30 Dose: 80 mg Senna/Docusate Sodium (Senna Plus Tablet) 1 tab PO HS [facility] Last Admin: 10/26/17 20:44 Dose: 1 tab Sodium Chloride (Saline Flush) 10 ml IV Q8 [facility] Last Admin: 10/26/17 21:51 Dose: Not Given Trazodone HCl (Desyrel) 50 mg PO HSP PRN PRN Reason: Insomnia Last Admin: 10/25/17 23:06 Dose: 50 mg Zolpidem Tartrate (Ambien) 5 mg PO HSP PRN PRN Reason: Insomnia Last Admin: 10/26/17 21:51 Dose: 5 mg Medical - PN: A/P - Time Spent With Patient Total time spent is greater than 50% in coordination of care (as documented) at patient's floor/unit and/or counseling patient: 15 - 24 minutes (1) Abdominal pain Status: Acute Assessment and plan: * Abdominal pain likely secondary to pancreatic diverticulum noted on MRCP/CT and EGD. GI recommends transfer to tertiary Center. Await transfer Plan * Continue supportive management with liters crystalloids and antiemetics and analgesics * Await transfer to tertiary Center Current Visit: Yes Medical - PN: Qual - Stroke Symptom Onset Unknown: No - VTE Deep Vein Thrombosis/Pulmonary Embolism Present on Admission: No
[2017-10-27] MEDS: PIPERACILLIN SODIUM/TAZOBACTAM 3.375 GM in DEXTROSE 5% IN WATER 50 ML IV SCH ×4 (05:34→23:44)
[2017-10-27] MEDS: 0.9 % SODIUM CHLORIDE 10 ML SYRINGE IV SCH ×3 (05:35→21:08)
[2017-10-27 06:20] LABS: Mean Cell Volume 91.8 fL (80.0-100.0); Mean Corpuscular HGB Conc 34.4 g/dL (31.0-36.0); Mean Corpuscular Hemoglobin 31.6 pg (26.0-34.0); Platelet Count 236 K/mcL (140-440); Red Cell Distribution Width 12.9 % (11.5-14.5)
[2017-10-27 06:51] LABS: ALT/SGPT 12 U/l (0-40); Albumin 3.8 gm/dL (3.2-5.2); Albumin/Globulin Ratio 1.7 (1.0-2.3); Alkaline Phosphatase 61 U/L (39-117); Bilirubin,Direct < 0.2 mg/dL (0.0-0.3); Blood Urea Nitrogen 3 mg/dl (6-20); Gamma Glutamyl Transpeptidase 10 U/L (5-36); Uric Acid 2.1 mg/dL (2.5-8.0)
[2017-10-27] MEDS: HEPARIN 5,000 UNIT/ML VIAL SQ SCH ×2 (09:18→21:08)
[2017-10-27] MEDS: MULTIVIT,THER IRON,CA,FA & MIN 1 TABLET PO SCH (09:18)
[2017-10-27] MEDS: PROPRANOLOL 80 MG CAP.XL.24H PO SCH (09:26)
[2017-10-27] MEDS: IBUPROFEN 200 MG TABLET PO PRN ×2 (10:03→20:40)
[2017-10-27 11:16] LABS: Eosinophils % (Manual) 5 % (0-7); Lymphocytes % 41 % (15-49); Monocytes % (Manual) 12 % (1-12); Platelet Estimate NORMAL (NORMAL); RBC Morphology NORMAL (NORMAL); Segmented Neutrophils % 42 % (38-78)
[2017-10-27] MEDS ORDERED: ACETAMINOPHEN 900 MG/90 ML BOTTLE IV PRN (13:30)
[2017-10-27] MEDS: SENNOSIDES/DOCUSATE SODIUM 1 TAB TABLET PO SCH (21:08)
--- NOTE | 2017-10-27 21:34 | Internal Med Progress Note ---
Medical - PN: Subj Patient information: Note initiated : 10/27/17 at 9:31 pm Service Date, if different from initiated Date: [] Patient: Magda Whitehead 57 y/o F admitted on 10/25/17 for Abdominal Cramping. Chief Complaint: [] Interval history: Ms. Whitehead is a 57 year old F fairly healthy lady who comes in with one-week onset of progressive nausea and right-sided upper quadrant abdominal pain and inability to function due to profound weakness. Patient feels the pain is exactly similar to prior episodes of pain in 2003. Patient gives a history of pancreatic stents placed for pancreatic duct stenosis in 2003 at [place] and subsequently removed and has had a symptom-free interval for over 10 years. Spiriva 6 out of 10-8 out of 10 right subcostal/epigastric without radiation. Associated with profound nausea and vomiting and inability to take anything orally over the last week. Patient denied associated shaking chills fever or weight loss yellow discoloration of skin or urine however she endorses to frequent watery diarrhea along with cramps associated mucus. She denies fever or chest palpitation skin rash or changes in medications. 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 GI was consulted and recommended tertiary center transfer. After discussion with tertiary Center and due to lack of available to bed patient is being admitted for upper endoscopy which will be performed with Dr. Ezequiel Barragan GI. Hospitalist service was consulted to facilitate above 10/26-upper endoscopy unremarkable. GI recommends transfer to tertiary Center due to persistent pain for ERCP. MRCP reveals 12 mm cystic lesion in the uncinate process/3 cm periampullary Diverticulum along with 3 mm dilatation of pancreatic duct. GI recommends advancement to [facility] along with continued pain management and transfer once beds available at tertiary Center. Transfer coordination ongoing to [facility]. 10/27-patient complains of persistent abdominal pain. Requiring IV opioids. Await transfer to tertiary Center for ERCP at [place]. No beds available as of this time. Patient on clear liquid diet. Very anxious and intermittently tearful. - Constitutional Vitals: Vital Signs Temp Pulse Resp BP Pulse Ox 98.5 F 56 L 16 125/76 98 10/27/17 18:55 10/27/17 18:55 10/27/17 18:55 10/27/17 18:55 10/27/17 18:55 Period Temp Pulse Resp BP Sys/Ramos Pulse Ox Last 24 Hr 98.0 F-99 F 56-71 16-20 110-129/68-77 95-98 Intake and Output 10/27/17 10/27/17 10/27/17 05:59 13:59 21:59 Intake Total 525 / 525 550 / 550 2390 / 2390 Output Total 1500 / 1500 2049 / 0 2200 / 2200 Balance -975 / -975 -1500 / -1500 190 / 190 Weight 130 lb 5 oz Patient Weight 10/28/17 05:59 Weight 130 lb 5 oz Intake & Output: Intake & Output 10/27/17 10/27/17 10/27/17 05:59 13:59 21:59 Intake Total 525 / 525 550 / 550 2390 / 2390 Output Total 1500 / 1500 2049 / 2049 2200 / 2200 Balance -975 / -975 -1500 / -1500 190 / 190 Weight 130 lb 5 oz Intake: IV 50 / 50 50 / 50 190 / 190 Zosyn 3.375 gm In Dextrose 5% 50 / 50 50 / 50 100 / 100 in Water 50 ml @ 100 mls/hr IV Q6H [facility] Rx#:[id number] Oral 475 / 475 500 / 500 2199 / 0 Output: Void Amount 1500 / 1500 2049 / 0 Other: Meal Nourishment/Supplement # Voids 1 # Bowel Movements 1 General appearance: no acute distress Exam: Intermittently tearful Persistent abdominal discomfort and epigastric area Nonlabored breathing Ambulating Medical - PN: Obj Da - Labs CBC & Chem 7: 10/27/17 04:10 10/27/17 04:10 Labs: Abnormal Lab Results 10/27/17 10/27/17 10/26/17 04:10 04:10 06:20 WBC RBC 3.80 L Hct 34.9 L Gran % Gran # Carbon Dioxide BUN 3 L 5 L Creatinine 0.5 L Glucose Uric Acid 2.1 L Triglycerides 183 H Lipase Ur Leukocyte Esterase Ur Squamous Epith Cells Urine Bacteria 10/26/17 10/25/17 10/25/17 06:20 06:23 05:43 WBC RBC 3.79 L Hct 34.9 L Gran % Gran # Carbon Dioxide BUN Creatinine Glucose Uric Acid Triglycerides Lipase 86 H Ur Leukocyte Esterase 25 A Ur Squamous Epith Cells 23 H Urine Bacteria Few A 10/25/17 10/25/17 05:43 05:43 WBC 14.7 H RBC Hct Gran % 78.1 H Gran # 11.5 H Carbon Dioxide 21 L BUN Creatinine Glucose 114 H Uric Acid Triglycerides Lipase Ur Leukocyte Esterase Ur Squamous Epith Cells Urine Bacteria Meds: Medications Acetaminophen (Tylenol) 650 mg PO Q4-6HP PRN PRN Reason: PAIN/FEVER > 101 Last Admin: 10/27/17 00:51 Dose: 650 mg Albuterol Sulfate (Ventolin) 2 puff INH Q4-6HP PRN PRN Reason: Wheezing Bisacodyl (Dulcolax) 10 mg W[place] Q2-3DAYS PRN PRN Reason: Constipation Diazepam (Valium) 5 mg PO Q4HP PRN PRN Reason: Muscle Spasm Last Admin: 10/27/17 17:53 Dose: 5 mg Heparin Sodium (Porcine) (Heparin) 5,000 unit SQ Q12 [facility] Last Admin: 10/27/17 21:08 Dose: 5,000 unit Magnesium Sulfate (Magnesium Sulfate) 2 gm in 50 mls @ 50 mls/hr IV UD PRN PRN Reason: MG = or < 1.7 Piperacillin Sod/Tazobactam (Sod 3.375 gm/ Dextrose) 50 mls @ 100 mls/hr IV Q6H [facility] Last Infusion: 10/27/17 21:10 Dose: Infused Acetaminophen (Ofirmev) 900 mg in 90 mls @ 180 mls/hr IV Q6HP PRN PRN Reason: PAIN/FEVER > 101 Last Infusion: 10/27/17 14:25 Dose: Infused Ibuprofen (Motrin) 200 - 400 mg PO BIDP PRN PRN Reason: Pain Last Admin: 10/27/17 20:40 Dose: 200 mg Iron Carb/Multivit/[employer]/Folic Acid (Multivitamin W/Minerals) 1 tab PO DAILY [facility] Last Admin: 10/27/17 09:18 Dose: 1 tab Morphine Sulfate (Morphine) 4 mg IV Q1HP PRN PRN Reason: PAIN LEVEL > 6 Last Admin: 10/27/17 19:47 Dose: 4 mg Ondansetron HCl (Zofran) 4 mg IV Q4-6HP PRN PRN Reason: Nausea And Vomiting Last Admin: 10/26/17 12:43 Dose: 4 mg Potassium Chloride (Klor-Con) 40 meq PO DAILYP PRN PRN Reason: K+ < 3.5 Last Admin: 10/27/17 19:03 Dose: 40 meq Propranolol HCl (Inderal La) 80 mg PO QDAY [facility] Last Admin: 10/27/17 09:26 Dose: 80 mg Senna/Docusate Sodium (Senna Plus Tablet) 1 tab PO HS [facility] Last Admin: 10/27/17 21:08 Dose: Not Given Sodium Chloride (Saline Flush) 10 ml IV Q8 [facility] Last Admin: 10/27/17 21:08 Dose: 10 ml Trazodone HCl (Desyrel) 50 mg PO HSP PRN PRN Reason: Insomnia Last Admin: 10/25/17 23:06 Dose: 50 mg Zolpidem Tartrate (Ambien) 5 mg PO HSP PRN PRN Reason: Insomnia Last Admin: 10/26/17 21:51 Dose: 5 mg Medical - PN: A/P - Time Spent With Patient Total time spent is greater than 50% in coordination of care (as documented) at patient's floor/unit and/or counseling patient: 15 - 24 minutes (1) Abdominal pain Status: Acute Assessment and plan: * Abdominal pain likely secondary to pancreatic diverticulum noted on MRCP/CT and EGD. GI Dr. Barragan recommends transfer to tertiary Center for ERCP. Await transfer to [facility]. Plan * Continue supportive management with oral clears , antiemetics and analgesics * Transfer to [facility] once bed available Current Visit: Yes Medical - PN: Qual - Stroke Symptom Onset Unknown: No - VTE Deep Vein Thrombosis/Pulmonary Embolism Present on Admission: No
[2017-10-27] MEDS: ZOLPIDEM 5 MG TABLET PO PRN (22:00)
[2017-10-28] MEDS: ACETAMINOPHEN 325 MG TABLET PO PRN ×2 (01:35→10:00)
[2017-10-28] MEDS: DIAZEPAM 5 MG TABLET PO PRN ×4 (02:32→15:29)
[2017-10-28] MEDS: IBUPROFEN 200 MG TABLET PO PRN (04:55)
[2017-10-28 05:01] LABS: Mean Cell Volume 91.9 fL (80.0-100.0); Mean Corpuscular HGB Conc 33.9 g/dL (31.0-36.0); Mean Corpuscular Hemoglobin 31.2 pg (26.0-34.0); Platelet Count 251 K/mcL (140-440); RBC 4.08 M/mcL (4.00-5.20); Red Cell Distribution Width 12.5 % (11.5-14.5)
[2017-10-28 05:15] LABS: ALT/SGPT 13 U/l (0-40); Albumin/Globulin Ratio 1.7 (1.0-2.3); Alkaline Phosphatase 63 U/L (39-117); Bilirubin,Direct < 0.2 mg/dL (0.0-0.3); Blood Urea Nitrogen 3 mg/dl (6-20); Gamma Glutamyl Transpeptidase 10 U/L (5-36); Uric Acid 2.3 mg/dL (2.5-8.0)
[2017-10-28] MEDS: PIPERACILLIN SODIUM/TAZOBACTAM 3.375 GM in DEXTROSE 5% IN WATER 50 ML IV SCH ×3 (06:09→17:02)
[2017-10-28] MEDS: 0.9 % SODIUM CHLORIDE 10 ML SYRINGE IV SCH ×2 (06:12→13:54)
[2017-10-28 08:00] LABS: Eosinophils % (Manual) 10 % (0-7); Lymphocytes % 50 % (15-49); Monocytes % (Manual) 6 % (1-12); Platelet Estimate NORMAL (NORMAL); RBC Morphology NORMAL (NORMAL); Segmented Neutrophils % 32 % (38-78)
[2017-10-28 09:10] LABS: Amylase 51 U/L (28-100); Lipase 18 U/L (7-60)
[2017-10-28] MEDS: PROPRANOLOL 80 MG CAP.XL.24H PO SCH (10:00)
[2017-10-28] MEDS: MULTIVIT,THER IRON,CA,FA & MIN 1 TABLET PO SCH (10:00)
[2017-10-28] MEDS: HEPARIN 5,000 UNIT/ML VIAL SQ SCH (10:01)
[2017-10-28] MEDS: oxyCODONE HCL 5 MG TABLET PO PRN ×3 (11:28→19:18)
--- NOTE | 2017-10-28 15:04 | Internal Med Progress Note ---
Medical - PN: Subj Patient information: Note initiated : 10/28/17 at 3:03 pm Service Date, if different from initiated Date: [] Patient: Magda Whitehead a 57 y/o F admitted on 10/25/17 for Abdominal Cramping. Chief Complaint: [] Interval history: Ms. Whitehead is a 57 year old F fairly healthy lady who comes in with one-week onset of progressive nausea and right-sided upper quadrant abdominal pain and inability to function due to profound weakness. Patient feels the pain is exactly similar to prior episodes of pain in 2003. 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 Spiriva 6 out of 10-8 out of 10 right subcostal/epigastric without radiation. Associated with profound nausea and vomiting and inability to take anything orally over the last week. Patient denied associated shaking chills fever or weight loss yellow discoloration of skin or urine however she endorses to frequent watery diarrhea along with cramps associated mucus. She denies fever or chest palpitation skin rash or changes in medications. 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 GI was consulted and recommended tertiary center transfer. After discussion with tertiary Center and due to lack of available to bed patient is being admitted for upper endoscopy which will be performed with Dr. Ezequiel Barragan GI. Hospitalist service was consulted to facilitate above 10/26-upper endoscopy unremarkable. GI recommends transfer to tertiary Center due to persistent pain for ERCP. MRCP reveals 12 mm cystic lesion in the uncinate process/3 cm periampullary Diverticulum along with 3 mm dilatation of pancreatic duct. GI recommends advancement to [facility] along with continued pain management and transfer once beds available at tertiary Center. Transfer coordination ongoing to [facility]. 10/27-patient complains of persistent abdominal pain. Requiring IV opioids. Await transfer to tertiary Center for ERCP at [place]. No beds available as of this time. Patient on clear liquid diet. Very anxious and intermittently tearful. 10/28 Pt seen examined, no acute overnight issues, no bed available at [facility] yet, spoke with at [facility], no property consultant available there to do the procedure, no beds at [facility]. Spoke with Dr Mota at [facility], who noted that pt does not need urgent intervention and can follow up as outpatient.PT is anxious about getting this done soon. Spoke again with Dr at [facility], if able to tolerate po diet and labs are stalbe, then can be evaluted as outpatient. for now she is on the list for transfer as she still has abdominal pain. I will advance her diet to regular today, and add oral opiate treatment for pain management. will revisit disposition tomorrow, pt quite fustrated of being in the hospital waiting for the bed. Pertinent ROS: Denies headache, dizziness Denies chest pain, palpitations Denies cough or shortness of breath present abdominal pain,No nausea or vomiting. - Constitutional Vitals: Vital Signs Temp Pulse Resp BP Pulse Ox 97.4 F 60 14 135/83 99 10/28/17 12:47 10/28/17 12:47 10/28/17 12:47 10/28/17 12:47 10/28/17 12:47 Period Temp Pulse Resp BP Sys/Ramos Pulse Ox Last 24 Hr 96.9 F-98.9 F 56-78 14-20 110-135/65-83 94-99 Intake and Output 10/28/17 10/28/17 10/28/17 05:59 13:59 21:59 Intake Total 170 / 170 770 / 770 50 / 50 Output Total 1000 / 1000 100 / 100 Balance -830 / -830 670 / 670 50 / 50 Weight 130 lb 5 oz Patient Weight 10/29/17 05:59 Weight 130 lb 5 oz Intake & Output: Intake & Output 10/28/17 10/28/17 10/28/17 05:59 13:59 21:59 Intake Total 170 / 170 770 / 770 50 / 50 Output Total 1000 / 1000 100 / 100 Balance -830 / -830 670 / 670 50 / 50 Weight 130 lb 5 oz Intake: IV 50 / 50 50 / 50 50 / 50 Zosyn 3.375 gm In Dextrose 5% 50 / 50 50 / 50 50 / 50 in Water 50 ml @ 100 mls/hr IV Q6H [facility] Rx#:[id number] Oral 120 / 120 720 / 720 Output: Void Amount 1000 / 1000 100 / 100 Other: Meal Breakfast Exam: Constitutional; Afebrile, cooperative, alert, not in distress. Eyes- No icterus, , No periorbital swelling Ears- Ext ear normal, hearing normal to conversation. Neck- Midline trachea, supple Respiratory system: Air Entry equal on both sides, No crackles or wheezing, no rhonchi. CVS- Rate rhythm regular, S1,S2 heard, no gallop, no rub. 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 Medical - PN: Obj Da - Labs CBC & Chem 7: 10/28/17 03:50 10/28/17 03:50 Labs: Abnormal Lab Results 10/28/17 10/28/17 10/27/17 03:50 03:50 04:10 RBC Hct Seg Neutrophils % 32 L Lymphocytes % 50 H Eosinophils % (Manual) 10 H BUN 3 L 3 L Creatinine Uric Acid 2.3 L 2.1 L Triglycerides 183 H 10/27/17 10/26/17 10/26/17 04:10 06:20 06:20 RBC 3.80 L 3.79 L Hct 34.9 L 34.9 L Seg Neutrophils % Lymphocytes % Eosinophils % (Manual) BUN 5 L Creatinine 0.5 L Uric Acid Triglycerides Meds: Medications Acetaminophen (Tylenol) 650 mg PO Q4-6HP PRN PRN Reason: PAIN/FEVER > 101 Last Admin: 10/28/17 10:00 Dose: 650 mg Albuterol Sulfate (Ventolin) 2 puff INH Q4-6HP PRN PRN Reason: Wheezing Bisacodyl (Dulcolax) 10 mg FL Q2-3DAYS PRN PRN Reason: Constipation Diazepam (Valium) 5 mg PO Q4HP PRN PRN Reason: Muscle Spasm Last Admin: 10/28/17 11:33 Dose: 5 mg Heparin Sodium (Porcine) (Heparin) 5,000 unit SQ Q12 AMINTA Last Admin: 10/28/17 10:01 Dose: 5,000 unit Magnesium Sulfate (Magnesium Sulfate) 2 gm in 50 mls @ 50 mls/hr IV UD PRN PRN Reason: MG = or < 1.7 Piperacillin Sod/Tazobactam (Sod 3.375 gm/ Dextrose) 50 mls @ 100 mls/hr IV Q6H AMINTA Last Infusion: 10/28/17 14:31 Dose: Infused Acetaminophen (Ofirmev) 900 mg in 90 mls @ 180 mls/hr IV Q6HP PRN PRN Reason: PAIN/FEVER > 101 Last Infusion: 10/27/17 14:25 Dose: Infused Ibuprofen (Motrin) 200 - 400 mg PO BIDP PRN PRN Reason: Pain Last Admin: 10/28/17 04:55 Dose: 400 mg Iron Carb/Multivit/Ad Setter/Folic Acid (Multivitamin W/Minerals) 1 tab PO DAILY AMINTA Last Admin: 10/28/17 10:00 Dose: 1 tab Morphine Sulfate (Morphine) 4 mg IV Q1HP PRN PRN Reason: PAIN LEVEL > 6 Last Admin: 10/28/17 07:31 Dose: 4 mg Ondansetron HCl (Zofran) 4 mg IV Q4-6HP PRN PRN Reason: Nausea And Vomiting Last Admin: 10/26/17 12:43 Dose: 4 mg Oxycodone HCl (Roxicodone) 5 - 10 mg PO Q4HP PRN PRN Reason: PAIN LEVEL 3-6 Last Admin: 10/28/17 11:28 Dose: 5 mg Potassium Chloride (Klor-Con) 40 meq PO DAILYP PRN PRN Reason: K+ < 3.5 Last Admin: 10/27/17 19:03 Dose: 40 meq Propranolol HCl (Inderal La) 80 mg PO QDAY AMINTA Last Admin: 10/28/17 10:00 Dose: 80 mg Senna/Docusate Sodium (Senna Plus Tablet) 1 tab PO HS [facility] Last Admin: 10/27/17 21:08 Dose: Not Given Sodium Chloride (Saline Flush) 10 ml IV Q8 [facility] Last Admin: 10/28/17 13:54 Dose: 10 ml Trazodone HCl (Desyrel) 50 mg PO HSP PRN PRN Reason: Insomnia Last Admin: 10/25/17 23:06 Dose: 50 mg Zolpidem Tartrate (Ambien) 5 mg PO HSP PRN PRN Reason: Insomnia Last Admin: 10/27/17 22:00 Dose: 5 mg Medical - PN: A/P - Time Spent With Patient Total time spent is greater than 50% in coordination of care (as documented) at patient's floor/unit and/or counseling patient: - Narrative A/P Narrative: * Abdominal pain likely secondary to pancreatic diverticulum noted on MRCP/CT and EGD. GI Dr. Barragan recommends transfer to tertiary Center for ERCP. Await transfer to [facility]. Plan * Continue supportive management with oral clears , antiemetics and analgesics * Transfer to [facility] once bed available * advance diet, oral pain meds, if able to tolerate and no bed availab,e pt would like to go home and then follow up as outpatient. Medical - PN: Qual - Stroke Symptom Onset Unknown: No - VTE Deep Vein Thrombosis/Pulmonary Embolism Present on Admission: No
--- NOTE | 2017-10-28 18:28 | Discharge Summary ---
Medical - DS: Prov Patient information: Note initiated : 10/28/17 at 6:23 pm Service Date, if different from initiated Date: [] Patient: Magda Whitehead 57 y/o F admitted on 10/25/17 for Abdominal Cramping. Chief Complaint: [] Date of admission: 10/25/17 17:36 Discharge date: 10/28/17 Primary care physician: Nicol Casillas Admitting clinician: Tristan Garnica Consults: 10/25/17 10:19 Consult to Physician [CONS] Stat Comment: Consulting Provider: Ezequiel Johnson Reason For Exam: Physician to Consult 10/25/17 11:12 Consult to Physician [CONS] Stat Comment: Consulting Provider: Tristan Garnica Reason For Exam: Physician to Consult Discharging clinician: Phylicia Caicedo Medical - DS: Meds - Discharge Medications Prescriptions: Ciprofloxacin HCl [Cipro] 500 mg PO BID #10 tab metroNIDAZOLE [Metronidazole] 500 mg PO TID #15 tab oxyCODONE HCL [Roxicodone] 5 - 10 mg PO Q4HP PRN #40 tab PRN Reason: Severe Pain Active and Home Medications: Home Medications propranolol ER 80 mg capsule,24 hr,extended release 80 mg PO QDAY 30 Days #30 cap 01/28/15 [Rx Confirmed 10/25/17 Last Taken 10/24/17 21:00] zolpidem 5 mg tablet See Dose Instructions PO HS PRN #10 tab 06/28/15 [Rx Confirmed 10/25/17 Last Taken 10/24/17 21:00] Albuterol Sulfate [Ventolin] 2 puff INH Q4-6HP PRN #1 inhaler 03/31/17 [Rx Confirmed 10/25/17 Last Taken Unknown] Melatonin/Pyridoxine [Melatonin 5 mg Tablet] 1 each PO HS 10/25/17 [History Confirmed 10/25/17 Last Taken 10/24/17 21:00] Medical - DS: Hosp Hospital course: Ms. Whitehead is a 57 year old F fairly healthy lady who comes in with one-week onset of progressive nausea and right-sided upper quadrant abdominal pain and inability to function due to profound weakness. Patient feels the pain is exactly similar to prior episodes of pain in 2003. 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 GI was consulted and recommended tertiary center transfer. After discussion with tertiary Center and due to lack of available to bed patient is being admitted for upper endoscopy which will be performed with Dr. Ezequiel Barragan GI. Hospitalist service was consulted to facilitate above 10/26-upper endoscopy unremarkable. GI recommends transfer to tertiary Center due to persistent pain for ERCP. MRCP reveals 12 mm cystic lesion in the uncinate process/3 cm periampullary Diverticulum along with 3 mm dilatation of pancreatic duct. GI recommends advancement to [facility] along with continued pain management and transfer once beds available at tertiary [place]. Transfer coordination ongoing to [facility]. 10/27-patient complains of persistent abdominal pain. Requiring IV opioids. Await transfer to tertiary Center for ERCP at [place]. No beds available as of this time. Patient on clear liquid diet. Very anxious and intermittently tearful. 10/28 Pt seen examined, no acute overnight issues, no bed available at [facility] yet, spoke with Dr at [facility], no field service consultant available there to do the procedure, no beds at [facility]. Spoke with Dr Mota at [facility], who noted that pt does not need urgent intervention and can follow up as outpatient.PT is anxious about getting this done soon. Spoke again with at [place], if able to tolerate po diet and labs are stalbe, then can be evaluted as outpatient. for now she is on the list for transfer as she still has abdominal pain. I will advance her diet to regular today, and add oral opiate treatment for pain management. will revisit disposition tomorrow, pt quite fustrated of being in the hospital waiting for the bed. The patient condition reviewed again this PM, she is able to tolerate regular diet, pain is well controlled with oral pain medications, we are still unsure when a bed will be available, but on talking with the physicians at [facility] and also [place] it seems EBUS could be done as outpatient. Labs are normal, pt is hemodynamically stable. Patient was under obs status and is concerned that her stay will not be covered by her insurance as she is out of time. Given that we do not have a bed yet, pt is hemodynamically stable and labs are normal, pt tolerating po diet and pain controlled with oral pain meds, will d/c home with outpatient follow up with Dr Kaye in [place] Diverticulitis- Cipro and flagyl for 5 more days, will need colonoscopy in 6 weeks time, last colonoscopy 5-6 yrs, pt advised to ensure her PCP makes the referral Discharge diagnosis: pancreatitis, Diverticulitis - Time Spent with Patient Total time spent providing and/or coordinating discharge services: Greater than 30 minutes Medical - DS: Exam - Constitutional Vitals: Vital Signs Temp Pulse Resp BP Pulse Ox 10/28/17 16:00 97.5 F 65 14 130/78 97 10/28/17 12:47 97.4 F 60 14 135/83 99 10/28/17 12:00 97.0 F 78 14 113/65 95 10/28/17 07:35 96.9 F L 57 L 14 131/74 94 10/28/17 04:00 97.8 F 56 L 14 127/78 94 10/27/17 23:47 97.8 F 72 14 122/68 98 10/27/17 18:55 98.5 F 56 L 16 125/76 98 Intake and Output 10/28/17 10/28/17 10/28/17 05:59 13:59 21:59 Intake Total 170 / 170 770 / 770 1330 / 1330 Output Total 1000 / 1000 100 / 100 900 / 900 Balance -830 / -830 670 / 670 430 / 430 Intake: IV 50 / 50 50 / 50 50 / 50 Zosyn 3.375 gm In Dextrose 5% 50 / 50 50 / 50 50 / 50 in Water 50 ml @ 100 mls/hr IV Q6H [facility] Rx#:[id number] Oral 120 / 120 720 / 720 1280 / 1280 Output: Void Amount 1000 / 1000 100 / 100 600 / 600 Stool 300 / 300 Other: Meal Breakfast Lunch Percent of Meal Consumed 75% # Bowel Movements 2 Weight 130 lb 5 oz Patient Weight 10/29/17 05:59 Weight 130 lb 5 oz Additional comments: Constitutional; Afebrile, cooperative, alert, not in distress. Eyes- No icterus, , No periorbital swelling Ears- Ext ear normal, hearing normal to conversation. Neck- Midline trachea, supple Respiratory system: Air Entry equal on both sides, No crackles or wheezing, no rhonchi. CVS- Rate rhythm regular, S1,S2 heard, no gallop, no rub. 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 Medical - DS: Data Labs on day of discharge: Labs from last 24 hours 10/28/17 10/28/17 10/28/17 03:50 03:50 03:50 WBC 5.8 RBC 4.08 Hgb 12.7 Hct 37.5 MCV 91.9 MCH 31.2 MCHC 33.9 RDW 12.5 Plt Count 251 MPV 7.7 Total Counted 100 Seg Neutrophils % 32 L Band Neutrophils % Not Reportable Lymphocytes % 50 H Monocytes % (Manual) 6 Eosinophils % (Manual) 10 H Reactive Lymphocytes 2 Platelet Estimate Normal RBC Morphology Normal Sodium 139 Potassium 3.6 Chloride 101 Carbon Dioxide 27 Anion Gap 11.0 BUN 3 L Creatinine 0.6 GFR Calculation 103 Glucose 101 Uric Acid 2.3 L Calcium 9.3 Phosphorus 4.1 Magnesium 2.0 Total Bilirubin 0.6 Direct Bilirubin < 0.2 GGT 10 AST 15 ALT 13 Alkaline Phosphatase 63 Lactate Dehydrogenase 142 Total Protein 6.3 Albumin 4.0 Globulin 2.3 Albumin/Globulin Ratio 1.7 Triglycerides 142 Amylase 51 Lipase 18 Medical - DS: A/P - Patient/Caregiver Discharge Instructions Activity: increase activity as tolerated Diet: Regular Diet Additional Instructions: Follow up with Dr Kaye/ [facility] physicians next week for EGD/ EBUS/ ERCP , they will get in touch with you, if they do not call you on Wednesday, please call them. Follow up with PCP in 1 week Follow up with Dr Johnson in 6 weeks for colonoscopy. Take your medications as prescribed. You need to take oral antibiotics for 5 more days. Take oxycodone as prescribed, if symptoms worsen and pain is not controlled by oral pain meds, please come back to the ER. - Follow up Plan Follow up with: Nicol Casillas MD [Primary Care Provider] - Disposition: Home, Self-Care Prognosis: Fair Rehab Potential: Fair I certify that the patient requires SNF services: No Overall status at discharge: patient is progressing back to baseline Medical - DS: Qual - VTE Deep Vein Thrombosis/Pulmonary Embolism Present on Admission: No
== END 2017-10-28 19:33 | disposition home or self-care (01) ==
LOC: ED 05:23 → MEDSUR 05:23
PROVIDERS: ADMIT Internal Medicine; ATTEND Internal Medicine